=== PATIENT | female | born 1950 | race Caucasian/White ===

== ENCOUNTER 2020-01-17 12:48 | Outpatient (CLI) | payer MEDICARE, OTHER ==
--- NOTE | 2020-01-17 13:14 | RAD ---
EXAM: XR Lumbar Spine 2 Or 3 View PROVIDED CLINICAL HISTORY: Burst fracture COMPARISON: CT 12/28/2019 FINDINGS: 5 nonrib-bearing lumbar-type vertebral bodies are present. Lumbar alignment appears normal. Superior endplate vertebral body height loss at L4 is redemonstrated. Lumbar vertebral body heights appear otherwise preserved. Intervertebral disc space heights appear preserved. Lower lumbar facet degenerat ion. Pedicles appear intact. SI joints appear symmetric. IMPRESSION: Stable superior endplate vertebral body height loss at L4.
== END 2020-01-17 12:49 | disposition home or self-care (01) ==
LOC: BICRAD 12:48
PROVIDERS: ATTEND Surgery
DX: S32.001A Stable burst fracture of unspecified lumbar vertebra, initial encounter for closed fracture (principal)
CPT/HCPCS: 72100